=== PATIENT | male | born 1965 | race Caucasian/White ===

== ENCOUNTER 2018-08-14 05:23 | Outpatient (CLI) | payer OTHER | END 2018-08-14 05:24 | disposition home or self-care (01) | LOC: LABBT 05:23 | PROVIDERS: ATTEND Surgery | DX: Z01.810 Encounter for preprocedural cardiovascular examination (principal); K40.90 Unilateral inguinal hernia, without obstruction or gangrene, not specified as recurrent | CPT/HCPCS: 93005; 93010 ==

== ENCOUNTER 2018-08-20 07:11 | Day surgery (SDC) | payer OTHER ==
[2018-08-14 08:33] VITALS: BMI 28.0
[2018-08-20] MEDS ORDERED: CEFAZOLIN 2 GM/50 ML BAG ONE (07:52)
[2018-08-20] MEDS ORDERED: Bupivacaine HCl 0.25%/Epi 0.0005/PF 10 ML VIAL FS ONE (08:16)
[2018-08-20] MEDS ORDERED: Midazolam HCl 2 mg/2 ml Vial ONE (08:52)
[2018-08-20] MEDS ORDERED: Fentanyl 250 MCG/5 ML VIAL ONE (08:53)
[2018-08-20] MEDS ORDERED: Fentanyl 100 MCG/2 ML VIAL ONE (10:35)
--- NOTE | 2018-08-20 11:00 | OP ---
DATE OF PROCEDURE: 08/20/2018 PREOPERATIVE DIAGNOSIS: Left inguinal hernia. POSTOPERATIVE DIAGNOSIS: Bilateral inguinal hernia. PROCEDURE PERFORMED: Laparoscopic DA Gregory robotic bilateral inguinal hernia repair with mesh. ANESTHESIA: General. ESTIMATED BLOOD LOSS: Minimal. COMPLICATIONS: None. FINDINGS: Bilateral direct inguinal hernia. DESCRIPTION OF PROCEDURE: The patient was taken to the operating room and laid supine on the operating room table. After general anesthetic was obtained, a Gonzalez was placed. The abdomen was shaved, prepped, and draped in a sterile fashion. A curved incision was made below the umbilicus. Cautery was used to dissect down to and score the fascia. Abdominal cavity was entered bluntly using a Keyona clamp. An 11-mm balloon trocar was placed and high-flow pneumoperitoneum obtained. Left and right abdominal 8 mm robotic trocars were placed. All ports were docked to the robot. Peritoneum was taken down in the left groin. The preperitoneal space was taken down all the way to pubic tubercle medially, anterior superior iliac crest laterally. The shelving edge of inguinal ligament was fully exposed. The large direct defect is reduced. Similar dissection was performed on the right with a smaller direct defect. Bilateral 3DMax large mesh was brought into the sterile field. The medial aspects were placed over pubic tubercle medially. The mesh was laid out laterally to cover the femoral, direct, and indirect areas. The mesh was sewn via 2-0 Vicryl to the pubic tubercle medially into the posterior fascia laterally. The bilateral peritoneum was reapproximated using running 3-0 Stratafix. All needles were removed from the abdomen and accounted for. All port sites were infiltrated using local anesthetic and removed under direct visualization. Pneumoperitoneum was let down. Maxon was used to close the fascial defect above the umbilicus. All incisions were irrigated and closed using 4-0 Monocryl and Dermabond. The patient was then returned to Recovery in stable condition. All instrument counts, needle counts, and lap counts were correct. Job ID: [id number]
[2018-08-20] MEDS ORDERED: HYDROcodone/Acetaminophen 5/325 mg Tablet ONE (11:43)
[2018-08-20] MEDS ORDERED: PROPOFOL 200 MG/20 ML VIAL ONE (16:54)
[2018-08-20] MEDS ORDERED: Glycopyrrolate 0.2 MG/ML 5 ML SYRINGE ONE (16:54)
[2018-08-20] MEDS ORDERED: Lidocaine 1% PF 5 ML VIAL ONE (16:54)
[2018-08-20] MEDS ORDERED: Rocuronium Bromide 10 MG/ML (10ML VIAL) ONE (16:54)
[2018-08-20] MEDS ORDERED: Succinylcholine Chloride 20 MG/ML 10 ml SYRINGE FS ONE (16:54)
[2018-08-20] MEDS ORDERED: Dexamethasone 20 MG/5 ML VIAL ONE (16:54)
[2018-08-20] MEDS ORDERED: Ondansetron PF 4 MG/2 ML Vial ONE (16:54)
== END 2018-08-20 12:30 | disposition home or self-care (01) ==
LOC: SDC 07:11
PROVIDERS: ATTEND Surgery
PROC: 0YUA4JZ Supplement Bilateral Inguinal Region with Synthetic Substitute, Percutaneous Endoscopic Approach (ICD-10-PCS; principal; 2018-08-20)
DX: K40.20 Bilateral inguinal hernia, without obstruction or gangrene, not specified as recurrent (principal); E78.5 Hyperlipidemia, unspecified; E78.00 Pure hypercholesterolemia, unspecified; J30.2 Other seasonal allergic rhinitis; J30.89 Other allergic rhinitis; I10 Essential (primary) hypertension; Z79.899 Other long term (current) drug therapy; Z88.8 Allergy status to other drugs, medicaments and biological substances
CPT/HCPCS: C1781; J1100; J2001; J2250; J2405; J2704; J3010

== ENCOUNTER 2018-11-13 12:57 | Outpatient (CLI) | payer OTHER ==
--- NOTE | 2018-11-16 09:01 | MRI ---
MRI LUMBAR SPINE: Date: 11/13/18 PROVIDED CLINICAL HISTORY: Low back pain. FINDINGS: Five lumbar vertebral bodies are assumed. Lumbar alignment appears normal. Vertebral body heights mishel ear preserved. No focal concerning regional marrow signal abnormality is evident. The conus medullari s is normal in signal and terminates at an appropriate level. The visualized extraspinal soft tissues appear unremarkable. At T12-L1, there is a broad based disc bulge with a superimposed right paracentral disc protrusion. T here is no significant central canal or foraminal narrowing apparent. At L1-2, there is no significant central canal or foraminal narrowing apparent. At L2-3, there is no significant central canal or foraminal narrowing apparent. At L3-4, there is a broad based disc bulge with a superimposed broad left foraminal disc protrusion p roducing moderate left foraminal narrowing. There is no significant central canal or right foraminal narrowing apparent. At L4-5, there is disc space height loss to a mild degree and disc desiccation with minimal end plate degenerative change. There is a broad based disc bulge and bilateral facet arthritis. There is mild central canal stenosis. There is moderate bilateral foraminal narrowing. At L5-S1, there is no significant central canal or foraminal narrowing apparent. IMPRESSION: Lower lumbar degenerative changes producing canal and foraminal narrowing as above. POS: OFF
== END 2018-11-13 12:58 | disposition home or self-care (01) ==
LOC: BICMRI 12:57
PROVIDERS: ATTEND Chiropractor
DX: M54.42 Lumbago with sciatica, left side (principal); M99.03 Segmental and somatic dysfunction of lumbar region; M47.816 Spondylosis without myelopathy or radiculopathy, lumbar region; M48.061 Spinal stenosis, lumbar region without neurogenic claudication
CPT/HCPCS: 72148